=== PATIENT | female | born 1965 | race African-American/Black ===

== ENCOUNTER → 2019-03-07 | Outpatient (CLI) | payer OTHER ==
[2019-01-14 12:00] VITALS: BP 137/70
[~2019-03-07] MED LIST: AMLO10TA4 PO; CYCL10TA2 PO; IBUP400T18 PO; Lisinopril PO; METO25TA2 PO; REGADENOSON 0.4 MG/5 ML DISP.SYRIN. IV ONE
--- NOTE | 2019-03-07 12:27 | RAD ---
MR#: [id number] Date of Study: 03/07/2019 Ordering Physician: ELODIA CASTREJON Referring Physician: BARRETT RESENDIZ Tech: RT Carrol Montesinos) (N) APPROVED REPORT Test Type: Pharmacological Stress Nurse/Tech: Marguerite Chapman RN Test Indications: Abnormal EKG Cardiac History: Hypertension Medications: See Electronic Medical Record Medical History: See Electronic Medical Record Resting ECG: SB Resting Heart Rate: 50 bpm Resting Blood Pressure: 121/60mmHg Pretest Chest Pain: No chest pain Nurse/Tech Notes S1,S2 and lungs are clear to auscultation. Consent: The procedure was explained to the patient in lay terms. Informed consent was witnessed. Lonnie eout was entered into [employer]. History and Stress Test performed by RT Carrol Montesinos) (N) Pharm. Details Pharmacologic stress testing was performed using 0.4mg per 5ml of regadenoson given intravenously ove r 7-10 seconds. Stress Symptoms Dizziness POST EXERCISE Reason for Termination: Infusion complete Target HR: No Max HR: 81 bpm Max Blood Pressure: 138/55mmHg Blood Pressure response to exercise: Normal blood pressure response during stress. Heart Rate response to exercise: WNL Chest Pain: No. Arrhythmia: No. ST Change: Yes. non diagnostic changes INTERPRETATION Stress EKG Conclusion: Baseline EKG showed sinus rhythm. No ischemic changes at peak stress. No arr hythmias. Imaging Protocol IMAGE PROTOCOL: Rest Tc-99m/stress Tc-99m 1 day Rest: Stress: Viability: Radiopharm.Tc99m QqrebthkbIx92z Sestamibi Dose10.6mCi 33mCi Duration 13min. 13min. Img Date 03/07/2019 03/07/2019 Inj-Img Lquo02cpi. 60min. Rest Admin Site:IV - Right AntecubitalAdministrator:RT Carrol Antunez)(N) Stress Admin Site: IV - Right AntecubitalAdministrator: NAZIA Dalal STRESS DATA End Diast. Vol.79.0mlLVEDV index BSA43.0ml End Syst. Vol.22.0mlLVESV index BSA12.0ml Myocardial Wnha456.0gEject. Wlluzbjc08.0% Stress Scores Regional WT0.00Summed WT2.00 Regional WM0.00Summed WM5.00 Study quality was good. Left Ventricular size was Normal at Rest and Stress. Lung uptake was . Left Ventricular ejection fraction is 72%. The rest and stress images show normal perfusion, normal contraction and thickening. LV Perf. Quant 17 Seg. SSS0.00 17 Seg. SRS0.00 17 Seg. SDS0.00 Stress Defect Extent (% LAD)0.00Rest Defect Extent (% LAD)0.00Rev. Defect Extent (% LAD)0.00 Stress Defect Extent (% LCX) 0.00Rest Defect Extent (% LCX)0.00Rev. Defect Extent (% LCX)0.00 Stress Defect Extent (% RCA)0.00Rest Defect Extent (% RCA)0.00Rev. Defect Extent (% RCA)0.00 Stress Defect Extent (% JONATHAN)0.00Rest Defect Extent (% JONATHAN)0.00Rev. Defect Extent (% JONATHAN)0.00 Conclusion 1. Regadenoson cardioisotope stress test did not show any evidence of ischemia or infarct. 2. Normal left ventricular systolic function with ejection fraction calculated at 72%. 3. Low risk for cardiac events. Signed by : Elodia Castrejon, Electronically Approved : 03/07/2019 12:26:41
== END | disposition home or self-care (01) ==
LOC: NM 08:11
PROVIDERS: ATTEND Internal Medicine Cardiovascular Disease
DX: M79.606 Pain in leg, unspecified (principal); R94.31 Abnormal electrocardiogram [ECG] [EKG]; I10 Essential (primary) hypertension
CPT/HCPCS: 78452; 93017; A9500; J2785

== ENCOUNTER 2019-04-28 10:06 | Emergency (ER) | payer OTHER ==
[~2019-04-28] VITALS: Ht 157.5 cm; Wt 84.4 kg
[~2019-04-28 10:06] MED LIST changes: -REGADENOSON 0.4 MG/5 ML DISP.SYRIN. IV ONE
[2019-04-28 10:11] VITALS: BP 148/68
--- NOTE | 2019-04-28 10:29 | PHYS DOC ---
Past Medical History Past Medical History: Hypertension Past Surgical History: No Surgical History Alcohol Use: None Drug Use: None Adult General Chief Complaint Chief Complaint: LOWER EXT PAIN HPI HPI Patient is a 53 year old female with history of hypertension who presents to the ED today complaining of moderate chronic left hip pain that has been going on for months. Patient states she has been seen at [facility], has been seen by an orthopedic doctor as well as a pain clinic doctor. She states she is currently on several medications including pain medicine for home use. She states she's had injections to her left hip as well as lumbar spine in the last one month. She states she did not attain any relief from her symptoms. Patient states the pain is worse on ambulation. Denies any known injury denies any pain radiating to bilateral lower extremities. Denies any loss of bowel bladder function. Denies any trauma. She states she's been diagnosed with bursitis of the left hip. Review of Systems Review of Systems Constitutional: Denies fever or chills [] GI: Denies abdominal pain, nausea, vomiting, bloody stools or diarrhea [] : Denies dysuria or hematuria [] Musculoskeletal: Reports chronic left hip pain Integument: Denies rash or skin lesions [] Neurologic: Denies headache, focal weakness or sensory changes [] All other systems were reviewed and found to be within normal limits, except as documented in this note. Current Medications Current Medications Current Medications Medications (Trade) Dose Ordered Sig/[facility] Start Time Stop Time Status Last Admin Dose Admin Ketorolac Tromethamine (Toradol Im) 60 mg 1X ONCE 04/28/19 10:30 04/28/19 10:31 UNV Morphine Sulfate (Morphine Sulfate) 5 mg 1X ONCE 04/28/19 10:30 04/28/19 10:31 UNV Allergies Allergies Allergies Coded Allergies Type Severity Reaction Last Updated Verified No Known Drug Allergies 02/04/15 No Physical Exam Physical Exam Constitutional: Well developed, well nourished, no acute distress, non-toxic onelia earance. [] Abdomen: Bowel sounds normal, soft, no tenderness, no masses, no pulsatile masses. [] Skin: Warm, dry, no erythema, no rash. [] Back: No tenderness, no CVA tenderness. [] Extremities: No tenderness, no cyanosis, no clubbing, passive ROM intact to the left lower extremity, no edema. [] Neurologic: Alert and oriented X 3, normal motor function, normal sensory function, no focal deficits noted. [] Psychologic: Affect normal, judgement normal, mood normal. [] EKG EKG [] Radiology/Procedures Radiology/Procedures [] Course & Med Decision Making Course & Med Decision Making Pertinent Labs and Imaging studies reviewed. (See chart for details) This is a 53-year-old female patient presenting to the ED today with chronic left hip pain with diagnosis of bursitis. No known injury. Patient is currently following up with the pain clinic as well as orthopedic doctor and PCP. See history of present illness. She reports having pain medicine at home. She was given one shot of morphine in the ED and Toradol and discharged, follow-up with her own doctor as soon as she can. Dragon Disclaimer Dragon Disclaimer This electronic medical record was generated, in whole or in part, using a voice recognition dictation system. Departure Departure Impression: Primary Impression: Trochanteric bursitis, left hip Disposition: HOME, SELF-CARE Condition: STABLE Referrals: JOSE SPRINGER (PCP) follow up with your primary care doctor,orthopedic doctor and pain clinic doctor as soon as you can Patient Instructions: Hip Bursitis Additional Instructions: You were seen for bursitis of the left hip. Continue following up with the orthopedic doctor, pain clinic as well as primary care doctor. Continue taking your pain medicine at home. YANCI PIPER APRN Apr 28, 2019 10:29
[2019-04-28] MEDS ORDERED: KETOROLAC 60 MG/2 ML VIAL. IM ONE (10:30)
[2019-04-28] MEDS ORDERED: MORPHINE SULFATE 10 MG/ML VIAL. IM ONE (10:30)
== END 2019-04-28 10:43 | disposition home or self-care (01) ==
LOC: ER 10:06
DX: M70.62 Trochanteric bursitis, left hip (principal); G89.29 Other chronic pain; I10 Essential (primary) hypertension; Y93.89 Activity, other specified
CPT/HCPCS: 96372; 99284; J1885; J2270